=== PATIENT | female | born 1990 | race Caucasian/White ===

== ENCOUNTER 2018-01-23 16:52 | Emergency (ER) | payer OTHER ==
[~2018-01-23] VITALS: Ht 162.6 cm; Wt 88.0 kg
[2018-01-23] MEDS ORDERED: PROGESTERONE100 M2 PO (17:10)
--- NOTE | 2018-01-23 17:15 | ED GENERAL ADULT ---
History of Present Illness General Chief Complaint: General Adult Stated Complaint: SENT BY FOR "EPTOPIC " PER PT Source: patient, family, PCP Exam Limitations: no limitations Vital Signs & Intake/Output Vital Signs & Intake/Output Vital Signs Date Time Temp Pulse Resp B/P B/P Pulse O2 O2 Flow FiO2 Mean Ox Delivery Rate 01/23 1700 Room Air Room Air 01/23 1656 98.4 125 18 134/83 98 Room Air Allergies Coded Allergies: cefprozil (From CEFZIL) (Severe, HIVES 01/23/18) Reconcile Medications Progesterone,Micronized (Progesterone) 100 MG CAPSULE 1 CAP PO BID HRT ( Reported) Triage Note: 27 YO FEMALE TO TRIAGE FOR ECTOPIC PRENANCY OF THE R FALLOPIAN TUBE. REPORTS SHE IS CURRENTLY 5 WEEKS 5 DAYS PRESENT. STATES STARTED VAGINALLY BLEEDING ON FRIDAY. STATES HAD AN US TODAY THAT SHOWED THE ECTOPIC. STATE HX OF SAME IN THE L FALLOPIAN TUBE. C/O LIGHT CRAMPING AT THIS TIME. SENT IN BY DR MATTHEWS. Triage Nurses Notes Reviewed? 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 Patient is approximately 5 weeks 5 days . Patient had an ultrasound which showed an ectopic . Patient has a history of ectopic in the past which has ruptured and she lost her left fallopian tube. Patient denies any pain. Patient is feeling anxious. Patient denies any vaginal bleeding. Past History Travel History Traveled to [place] past 21 day No Medical History Any Pertinent Medical History? 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 No Review of Systems Review of Systems Constitutional: Reports: no symptoms. EENTM: Reports: no symptoms. Respiratory: Reports: no symptoms. Cardiovascular: Reports: no symptoms. GI: Reports: see HPI, abdominal pain. Genitourinary: Reports: no symptoms. Musculoskeletal: Reports: no symptoms. Skin: Reports: no symptoms. Neurological/Psychological: Reports: no symptoms. Hematologic/Endocrine: Reports: no symptoms. Immunologic/Allergic: Reports: no symptoms. All Other Systems: Reviewed and Negative Physical Exam Physical Exam General Appearance: well developed/nourished, alert, awake, anxious, mild distress Head: atraumatic, normal appearance Eyes: Bilateral: PERRL, EOMI. Ears, Nose, Throat: normal pharynx, normal ENT inspection Neck: normal inspection, supple, full range of motion Respiratory: normal breath sounds, chest non-tender, no respiratory distress, lungs clear Cardiovascular: regular rate/rhythm, normal peripheral pulses Gastrointestinal: normal bowel sounds, soft, non-tender, no organomegaly Back: normal inspection, normal range of motion Extremities: normal inspection, normal capillary refill, normal range of motion, no edema Neurologic/Psych: no motor/sensory deficits, awake, alert, oriented x 3, normal gait, normal mood/affect Skin: intact, normal color, warm/dry Core Measures ACS in differential dx? No CVA/TIA Diagnosis: No Sepsis Present: No Sepsis Focused Exam Completed? No Progress Differential Diagnoses I considered the following diagnoses in my evaluation of the patient: [ECTOPIC ] Plan of Care: Orders Procedure Date/time Status HUMAN BETA HCG TITRE 01/23 171 Complete COMPREHENSIVE METABOLIC PANEL 01/23 1715 Complete CBC WITHOUT DIFFERENTIAL 01/23 1715 Complete Laboratory Tests 01/23/18 1805: Anion Gap 10, Estimated GFR > 60, BUN/Creatinine Ratio 18.3, Glucose 95, Calcium 9.8, Total Bilirubin 0.2, AST 21, ALT 36, Alkaline Phosphatase 65, Total Protein 7.2, Albumin 4.3, Globulin 2.9, Albumin/Globulin Ratio 1.5, Beta HCG, Quant 2474.8, CBC w Diff NO MAN DIFF REQ, RBC 3.97 L, MCV 93.5, MCH 32.8 H, MCHC 35.1, RDW 12.8, MPV 8.7, Gran % 73.1, Lymphocytes % 21.2, Monocytes % 5.0, Eosinophils % 0.4, Basophils % 0.3, Absolute Granulocytes 8.1 H, Absolute Lymphocytes 2.3, Absolute Monocytes 0.6, Absolute Eosinophils 0, Absolute Basophils 0 Initial ED EKG: none Departure Departure Disposition: HOME OR SELF CARE Condition: Stable Clinical Impression Primary Impression: Ectopic Referrals: Adriana Burgos MD (PCP/Family) Kendall Mann MD Additional Instructions: Take it easy over this weekend. Return if you develop any pain, lightheadedness or for any other concerns. Follow up with Dr. Howe next week. Departure Forms: Customer Survey General Discharge Information Critical Care Note Critical Care Note Critical Care Time: non-applicable
[2018-01-23 18:18] LABS: ABSOLUTE BASOPHIL COUNT 0 /CUMM (0.0-0.2); ABSOLUTE EOSINOPHIL COUNT 0 /CUMM (0.0-0.7); ABSOLUTE GRANULOCYTE CT 8.1 /CUMM (1.4-6.5); ABSOLUTE LYMPH COUNT 2.3 /CUMM (1.2-3.4); ABSOLUTE MONOCYTE COUNT 0.6 /CUMM (0.10-0.60); BASOPHIL % 0.3 % (0.0-2.0); EOSINOPHIL % 0.4 % (0-5); GRANULOCYTE % 73.1 % (42.2-75.2); HEMATOCRIT 37.2 % (37-47); MEAN CORPUSCULAR HGB 32.8 PG (27.0-31.0); MEAN CORPUSCULAR HGB CONC 35.1 G/DL (33.0-37.0); MEAN CORPUSCULAR VOLUME 93.5 FL (81.0-99.0); MEAN PLATELET VOLUME 8.7 FL (7.4-10.4); PLATELET COUNT 308 /CUMM (130-400); RBC DISTRIBUTION WIDTH 12.8 % (11.5-14.5); RED BLOOD CELL CT 3.97 /CUMM (4.20-5.40); WHITE BLOOD CELL COUNT 11.1 /CUMM (4.8-10.8)
[2018-01-23 19:00] VITALS: BP 123/71
[2018-01-25] MEDS ORDERED: OXYCODONE-ACET1 EACH PO (15:54)
== END 2018-01-23 19:44 ==
LOC: ERH 16:52
PROVIDERS: Emergency Medicine
DX: O00.90 Unspecified ectopic pregnancy without intrauterine pregnancy (principal)
CPT/HCPCS: 96372; J9250